=== PATIENT | female | born 1960 | race Caucasian/White ===

== ENCOUNTER 2023-01-10 11:45 | Outpatient (CLI) | payer BC | END 2023-01-10 11:46 | LOC: PET 11:45 | PROVIDERS: ATTEND Radiology Radiation Oncology | DX: C02.3 Malignant neoplasm of anterior two-thirds of tongue, part unspecified (principal) | CPT/HCPCS: 78815; A9552 ==

== ENCOUNTER 2023-01-19 10:01 | Observation (INO) | payer BC ==
[2023-01-17 11:34] VITALS: BMI 29.2
[2023-01-19 13:50] LABS: #Basophils 0.1 thou/uL (0.0-0.2); #Eosinphils 0.1 thou/uL (0.0-0.7); #Monocytes 0.4 thou/uL (0.11-0.59); #Neutrophils 3.6 thou/uL (1.40-6.50); %Basophils 1.3 % (0.0-1.0); %Eosinophils 1.7 % (0.0-10.0); %Lymphocytes 23.3 % (21.0-51.0); %Monocytes 7.2 % (0.0-10.0); %Neutrophils 66.3 % (42.0-75.0); Hematocrit 39.2 % (36.0-47.0); Hemoglobin 12.9 g/dL (12.0-16.0); Mean Corpuscular HGB CONC 32.9 g/dL (32.0-36.0); Mean Corpuscular Hemoglobin 26.1 pg (27.0-31.0); Mean Corpuscular Volume 79.4 fl (78.0-98.0); Mean Platelet Volume 10.5 fL (7.4-10.4); Platelet Count 240 10x3/uL (130-400); RBC Distribution Width 14.6 % (11.5-14.5); Red Blood Cell (RBC) Count 4.94 mill/uL (4.20-5.40); White Blood Cell (WBC) Count 5.4 10x3/uL (4.8-10.8)
[2023-01-19 14:03] LABS: INR-International Normal Ratio 1.1; Prothrombin Time 14.4 sec (12.0-14.7)
[2023-01-19 14:04] LABS: PTT 30.6 sec (22.9-36.1)
[2023-01-19 14:09] LABS: ALT (SGPT) 18 U/L (8-55); AST (SGOT) 26 U/L (5-34); Albumin 4.4 g/dL (3.4-4.8); Alkaline Phosphatase 98 U/L (40-110); Anion Gap 15 mmol/L (10-20); BUN (Urea Nitrogen) 7 mg/dL (9.8-20.1); Bilirubin, Direct 0.4 mg/dL (0.1-0.3); Bilirubin, Total 0.7 mg/dL (0.2-1.2); Calc. Creatinine Clearance 64 mL/min (70-130); Calcium 9.6 mg/dL (7.8-10.44); Carbon Dioxide 22 mmol/L (23-31); Chloride 97 mmol/L (98-107); Estimated GFR 62; Glucose 82 mg/dL (80-115); Protein, Total 7.1 g/dL (5.8-8.1); Sodium 130 mmol/L (136-145)
[2023-01-19] MEDS ORDERED: Ipratropium/Albuterol 3 ML NEB ONE (15:03)
[2023-01-19] MEDS ORDERED: Lidocaine 1% (PF) 30 ML VIAL ONE ×2 (15:29→16:01)
[2023-01-19] MEDS ORDERED: EPINEPHrine 1 MG/ML AMP ONE ×2 (15:29→16:01)
[2023-01-19] MEDS ORDERED: fentaNYL PF 100 MCG/2 ML SYRINGE ONE (16:16)
[2023-01-19] MEDS ORDERED: Glycopyrrolate 0.2 MG/ML 5 ML SYRINGE ONE ×2 (16:20)
[2023-01-19] MEDS ORDERED: PROPOFOL 200 MG/20 ML VIAL ONE (16:20)
[2023-01-19] MEDS ORDERED: NEOSTIGMINE 3 MG/3 ML SYR 3 MG/3 ML SYRINGE ONE (16:20)
[2023-01-19] MEDS ORDERED: Dexamethasone 20 MG/5 ML VIAL ONE (16:20)
[2023-01-19] MEDS ORDERED: Rocuronium Bromide 10 MG/ML (10ML VIAL) ONE (16:20)
[2023-01-19] MEDS ORDERED: Lidocaine 1% PF 5 ML VIAL ONE (16:20)
[2023-01-19] MEDS ORDERED: Ondansetron PF 4 MG/2 ML Vial ONE (16:20)
[2023-01-19] MEDS ORDERED: Sevoflurane 250 ML INH ANEST BOTTLE ONE (16:24)
[2023-01-19] MEDS ORDERED: Ondansetron PF 4 MG/2 ML Vial IVP PRN (17:24)
[2023-01-19] MEDS ORDERED: traMADol HCl 50 MG TAB PO PRN (17:25)
[2023-01-19] MEDS ORDERED: Promethazine HCl 25 MG/ML VIAL IM PRN (17:27)
[2023-01-19] MEDS ORDERED: Ondansetron HCl/PF 4 MG/2 ML Vial IVP PRN (17:27)
[2023-01-19] MEDS ORDERED: hydrALAZINE 20 MG/ML VIAL SLOW IVP PRN (17:28)
[2023-01-19] MEDS ORDERED: Hydrocodone-Acetamin 15 ML UDCUP PO PRN (17:29)
[2023-01-19] MEDS ORDERED: D5 1/2 NS w/20 mEq KCL 1,000 ML IV SCH (17:30)
[2023-01-19] MEDS ORDERED: fentaNYL 50 mcg/mL 1 mL Vial ONE ×3 (17:42→18:30)
[2023-01-19] MEDS ORDERED: hydrALAZINE 20 MG/ML VIAL ONE (17:45)
[2023-01-19] MEDS: Carvedilol 25 MG TAB PO SCH (20:06)
[2023-01-19] MEDS ORDERED: Lorazepam 0.5 MG TAB PO PRN (20:43)
[2023-01-19] MEDS ORDERED: Atorvastatin Calcium 10 MG TAB PO SCH (21:00)
[2023-01-19] MEDS ORDERED: Non-Formulary Item 1 EACH (Carvedilol [Coreg] 12.5 MG Tab) PO SCH (21:00)
[2023-01-19] MEDS: Sodium Chloride 1 GM TAB PO SCH (21:08)
[2023-01-19] MEDS: Morphine 2 MG/ML VIAL SLOW IVP PRN (23:36)
[2023-01-20] MEDS: Morphine 2 MG/ML VIAL SLOW IVP PRN ×2 (04:50→09:04)
[2023-01-20] MEDS ORDERED: Budesonide 0.5 MG/2 ML NEB NEB SCH (06:30)
[2023-01-20] MEDS: Carvedilol 25 MG TAB PO SCH (08:53)
[2023-01-20] MEDS: Sodium Chloride 1 GM TAB PO SCH (08:54)
[2023-01-20] MEDS ORDERED: Aspirin Chewable 81 MG TAB PO SCH (09:00)
[2023-01-20] MEDS ORDERED: Citalopram 20 MG TAB PO SCH ×2 (09:00)
[2023-01-20] MEDS ORDERED: Losartan 25 MG TAB PO SCH ×2 (09:00)
[2023-01-20 11:44] VITALS: BP 125/73; TEMP 98.3
== END 2023-01-20 11:42 | disposition home or self-care (01) ==
LOC: SDC 10:01 → T4-A 17:23
PROVIDERS: ADMIT Specialist; ATTEND Specialist
PROC: 0CB70ZZ Excision of Tongue, Open Approach (ICD-10-PCS; principal; 2023-01-19)
DX: C02.9 Malignant neoplasm of tongue, unspecified (principal); J44.9 Chronic obstructive pulmonary disease, unspecified; I10 Essential (primary) hypertension; E78.00 Pure hypercholesterolemia, unspecified; F41.9 Anxiety disorder, unspecified; Z90.710 Acquired absence of both cervix and uterus; Z79.899 Other long term (current) drug therapy; Z87.891 Personal history of nicotine dependence; Z95.2 Presence of prosthetic heart valve
CPT/HCPCS: 80048; 80076; 85025; 85610; 85730; 88309; 93005; 93010; 94640; J0171; J0360; J1100; J2001; J2272; J2405; J2704; J3010; J7611; J7620; J7626